=== PATIENT | female | born 1980 | race African-American/Black ===

== ENCOUNTER 2019-04-18 15:08 | Emergency (ER) | payer SELFPAY ==
[~2019-04-18] VITALS: Ht 162.6 cm; Wt 95.0 kg
[2019-04-18] MEDS ORDERED: KETOROLAC 30MG/ML VIAL IM ONE (16:00)
[2019-04-18 16:37] VITALS: BP 118/59
== END 2019-04-18 16:37 | disposition home or self-care (01) ==
LOC: ER 15:08
DX: S10.93XA Contusion of unspecified part of neck, initial encounter (principal); S30.0XXA Contusion of lower back and pelvis, initial encounter; R51 Headache; V49.88XA Car occupant (driver) (passenger) injured in other specified transport accidents, initial encounter; Y93.89 Activity, other specified; Y92.89 Other specified places as the place of occurrence of the external cause; Y99.8 Other external cause status
CPT/HCPCS: 96372; 99283; J1885